=== PATIENT | male | born 1975 | race Two or more races ===

== ENCOUNTER 2023-09-13 20:19 | Emergency (ER) | payer OTHER ==
[~2023-09-13] VITALS: Ht 170.2 cm; Wt 68.5 kg
[2023-09-13 21:48] LABS: HEMATOCRIT 47.9 % (39.0-48.0); HEMOGLOBIN 16.5 g/dL (13-16.00); MEAN CELL VOLUME 84.9 fL (80.0-100.00); MEAN CORPUSCULAR HEMOGLOBIN 29.3 pg (27.00-32.0); MEAN CORPUSCULAR HGB CONC 34.5 g/dl (32.0-36.0); PLATELET COUNT 251 K/uL (150-450); RED BLOOD COUNT 5.64 M/uL (4.00-6.00); RED CELL DISTRIBUTION WIDTH 13.1 % (11.5-14.5)
[2023-09-13] MEDS ORDERED: LISINOPRIL 5 MG TABLET PO STA (21:48)
[2023-09-13 22:04] LABS: INR 0.99; PARTIAL THROMBOPLASTIN TIME 26.5 SECONDS (22.0-34.0); PROTHROMBIN TIME 10.4 SECONDS (9.0-11.5)
[2023-09-13 22:08] LABS: ALBUMIN 4.6 gm/dL (3.4-5.0); BILIRUBIN TOTAL 0.68 mg/dL (0.3-1.2); CALCIUM 9.6 mg/dL (8.5-10.1); CREATININE SERUM 1.19 mg/dL (0.70-1.30); GFR 65.81; GLOBULINA 3.7 G/DL (2.4-3.5); POTASSIUM 4.15 mEq/L (3.5-5.1); TOTAL PROTEIN 8.3 gm/dL (6.4-8.2)
== END 2023-09-13 23:31 | disposition home or self-care (01) ==
LOC: ER 20:20
PROVIDERS: General Practice
DX: G45.8 Other transient cerebral ischemic attacks and related syndromes (principal); E78.00 Pure hypercholesterolemia, unspecified; Z88.6 Allergy status to analgesic agent